=== PATIENT | female | born 1975 | race Caucasian/White ===

== ENCOUNTER → 2019-08-16 08:48 | Outpatient (CLI) | payer OTHER | END | disposition home or self-care (01) | LOC: D.US 08:48 | PROVIDERS: ATTEND Family Medicine | DX: R10.10 Upper abdominal pain, unspecified (principal) ==

== ENCOUNTER → 2019-09-08 12:58 | Outpatient (CLI) | payer OTHER ==
[2019-09-09 08:11] LABS: IMMUNOGLOBULIN A 164 mg/dL (87-352)
[2019-09-10 10:20] LABS: ANTIGLIADIN IGA 4 units (0-19); ANTIGLIADIN IGG 5 units (0-19)
[2019-09-11 14:11] LABS: T-TRANSGLUTAMINASE IGA <2 U/mL (0-3); T-TRANSGLUTAMINASE IGG <2 U/mL (0-5)
== END | disposition home or self-care (01) ==
LOC: D.LAB 12:58
PROVIDERS: ATTEND Internal Medicine Gastroenterology
DX: K21.9 Gastro-esophageal reflux disease without esophagitis (principal); R10.9 Unspecified abdominal pain

== ENCOUNTER → 2019-09-18 07:42 | Outpatient (CLI) | payer OTHER | END | disposition home or self-care (01) | LOC: D.NM 07:42 | PROVIDERS: ATTEND Internal Medicine Gastroenterology | DX: R10.13 Epigastric pain (principal); G80.9 Cerebral palsy, unspecified ==